=== PATIENT | female | born 1950 | race Caucasian/White ===

== ENCOUNTER 2016-12-01 09:07 | Emergency (ER) | payer OTHER ==
[~2016-12-01] VITALS: Ht 162.6 cm; Wt 70.4 kg
[2016-12-01] MEDS ORDERED: NAPROXEN500 MG PO (10:16)
[2016-12-01 10:50] VITALS: BP 144/77
== END 2016-12-01 10:52 | disposition home or self-care (01) ==
LOC: EME 09:07
DX: M25.461 Effusion, right knee (principal); S93.401A Sprain of unspecified ligament of right ankle, initial encounter; W10.9XXA Fall (on) (from) unspecified stairs and steps, initial encounter; E78.5 Hyperlipidemia, unspecified; I10 Essential (primary) hypertension
CPT/HCPCS: 73564; 73610; 99281; 99284